=== PATIENT | female | born 1980 | race Caucasian/White ===

== ENCOUNTER → 2016-10-12 | Outpatient (CLI) | payer MEDICARE, OTHER ==
[2016-10-12 13:38] LABS: HEMOGLOBIN 13.1 gm/dl (12.3-15.3); RED BLOOD COUNT 5.07 M/UL (4.00-5.10); WHITE BLOOD COUNT 11.7 K/UL (4.5-11.0)
[2016-10-12 13:58] LABS: BUN/CREATININE RATIO 8 (0-10)
== END ==
LOC: CT 12:33
PROVIDERS: Family Medicine
DX: R10.31 Right lower quadrant pain (principal); R53.83 Other fatigue; R16.0 Hepatomegaly, not elsewhere classified; K76.0 Fatty (change of) liver, not elsewhere classified
CPT/HCPCS: 36415; 80053; 81001; 85025; 87077; 87086; 87186; J7050; Q9962

== ENCOUNTER → 2020-07-20 | Outpatient (CLI) | payer MEDICARE, OTHER ==
[~2020-07-20] MED LIST: MACROBID 100 M100 MG PO
[2020-07-20 13:07] LABS: RED BLOOD COUNT 5.18 M/UL (4.00-5.10); WHITE BLOOD COUNT 11.7 K/UL (4.5-11.0)
[2020-07-20 13:33] LABS: BUN/CREATININE RATIO 11 (0-10)
[2020-07-21 12:13] LABS: CREATININE, URINE 48.2 mg/dL (Not Estab.)
== END ==
LOC: LAB 12:47
PROVIDERS: Family Medicine
DX: E53.8 Deficiency of other specified B group vitamins (principal); E11.9 Type 2 diabetes mellitus without complications; E55.9 Vitamin D deficiency, unspecified; E78.2 Mixed hyperlipidemia
CPT/HCPCS: 36415; 80053; 80061; 82043; 82570; 82607; 85027

== ENCOUNTER → 2020-10-27 | Outpatient (CLI) | payer MEDICARE, OTHER | LOC: EXRD 14:18 | DX: R10.31 Right lower quadrant pain (principal); R10.32 Left lower quadrant pain; R10.2 Pelvic and perineal pain; R93.89 Abnormal findings on diagnostic imaging of other specified body structures; N83.202 Unspecified ovarian cyst, left side; N83.201 Unspecified ovarian cyst, right side | CPT/HCPCS: 76830 ==

== ENCOUNTER → 2021-04-09 | Outpatient (CLI) | payer MEDICARE, OTHER | LOC: MAMO 08:07 | DX: Z12.31 Encounter for screening mammogram for malignant neoplasm of breast (principal) | CPT/HCPCS: 77063; 77067 ==

== ENCOUNTER → 2021-04-13 | Outpatient (CLI) | payer MEDICARE, OTHER | LOC: US 13:11 | DX: R92.8 Other abnormal and inconclusive findings on diagnostic imaging of breast (principal) | CPT/HCPCS: 76641 ==

== ENCOUNTER 2021-06-09 16:20 | Emergency (ER) | payer MEDICARE, OTHER ==
[2021-06-09] MEDS ORDERED: CEFUROXIME500 MG PO (21:45)
[2021-06-09] MEDS ORDERED: BENZONATATE200 MG PO (21:45)
== END 2021-06-09 22:07 | disposition home or self-care (01) ==
LOC: ER1 16:20
DX: B34.9 Viral infection, unspecified (principal); E11.9 Type 2 diabetes mellitus without complications; Z20.822 Contact with and (suspected) exposure to COVID-19
CPT/HCPCS: 71046; 87081; 87880; 94664; 94760; 99285; U0002

== ENCOUNTER → 2021-08-06 | Outpatient (CLI) | payer MEDICARE, OTHER ==
[~2021-08-06] MED LIST changes: +BENZONATATE200 MG PO; +CEFUROXIME500 MG PO
== END ==
LOC: MAMO 07-23 10:00
DX: R92.8 Other abnormal and inconclusive findings on diagnostic imaging of breast (principal)
CPT/HCPCS: 76641-LT; 77065

== ENCOUNTER → 2021-09-20 | Outpatient (CLI) | payer MEDICARE, OTHER | LOC: EXRD 10:33 | DX: M25.511 Pain in right shoulder (principal); M25.521 Pain in right elbow | CPT/HCPCS: 73030 ==

== ENCOUNTER → 2021-12-17 | Outpatient (CLI) | payer MEDICARE, OTHER ==
[2021-12-17 11:53] LABS: HEMOGLOBIN 13.5 gm/dl (12.3-15.3); RED BLOOD COUNT 5.13 M/UL (4.00-5.10); WHITE BLOOD COUNT 10.9 K/UL (4.5-11.0)
[2021-12-17 12:18] LABS: BUN/CREATININE RATIO 12 (0-10)
== END ==
LOC: LAB 11:28
PROVIDERS: Family Medicine
DX: E11.9 Type 2 diabetes mellitus without complications (principal); E78.2 Mixed hyperlipidemia; E55.9 Vitamin D deficiency, unspecified; E53.8 Deficiency of other specified B group vitamins
CPT/HCPCS: 36415; 80053; 80061; 82607; 83036; 83735; 85027

== ENCOUNTER → 2022-03-14 | Outpatient (CLI) | payer MEDICARE, OTHER ==
[2022-03-14 10:33] LABS: HEMOGLOBIN 13.1 gm/dl (12.3-15.3); RED BLOOD COUNT 4.98 M/UL (4.00-5.10); WHITE BLOOD COUNT 8.6 K/UL (4.5-11.0)
[2022-03-14 10:57] LABS: BUN/CREATININE RATIO 9 (0-10)
[2022-03-15 09:14] LABS: HEMOGLOBIN A1C 6.5 % (4.8-5.6)
[2022-03-16 07:12] LABS: CHOLESTEROL, TOTAL 170 mg/dL (100-199); HDL CHOLESTEROL 30 mg/dL (>39); LDL CHOLESTEROL CALC 112 mg/dL (0-99); LDL/HDL RATIO 3.7 ratio (0.0-3.2); T. CHOL/HDL RATIO 5.7 ratio (0.0-4.4); TRIGLYCERIDES 158 mg/dL (0-149)
== END ==
LOC: US 01-28 10:00
PROVIDERS: Family Medicine
DX: E78.2 Mixed hyperlipidemia (principal); E55.9 Vitamin D deficiency, unspecified; E53.8 Deficiency of other specified B group vitamins; E11.9 Type 2 diabetes mellitus without complications; R92.8 Other abnormal and inconclusive findings on diagnostic imaging of breast
CPT/HCPCS: 36415; 76641-LT; 80053; 80061; 82607; 83036; 83735; 85027